=== PATIENT | female | born 1960 | race Caucasian/White ===

== ENCOUNTER 2019-11-07 09:42 | Day surgery (SDC) | payer OTHER ==
[~2019-11-07] VITALS: Ht 167.6 cm; Wt 136.5 kg
[~2019-11-07 09:42] MED LIST: OMEPRAZOLE 20 M20 M1 PO; TUMS ULTRA400 MG PO
[2019-11-07 11:05] LABS: HEMOGLOBIN 13.6 gm/dL (12.0-15.0)
[2019-11-07 11:06] VITALS: BP 131/79
--- NOTE | 2019-11-07 14:46 | H ---
[facility] [place] [address] HISTORY AND PHYSICAL Name: NIKKI MORAN Room #: 150-1 [facility] M.R.#: [id number] Admission: 11/07/19 Attend Phys: Jaiden Ulloa MD Discharge: Date of : 58 Report #: [id number] THIS REPORT FOR: cc: Jerome Boyd James A. DO Chu, Peter Y. MD ~ CC: Jerome Ulloa PREOPERATIVE DIAGNOSIS: Incisional hernia with increasing pain. Partial incarcerated with fat. HISTORY OF PRESENT ILLNESS: The patient is a 59-year-old who was seen in the office about a year ago with an incisional hernia. She had a gastric sleeve procedure. She has lost weight from 400 down to 280. With that, she noticed swelling in the right side of her abdomen. She does have discomfort in this area. Recently, she is having more pain. The patient only became aware of the bulge after her weight loss. The patient did have several laparoscopic surgeries besides the gastric sleeve surgery. The patient denies any nausea or vomiting. Does not do any heavy lifting. No difficulty with bowel movement and urination. The patient had a CAT scan performed, which showed a hernia in the abdominal wall adjacent to the umbilicus. The fascia defect measures 3.8 cm. There is fat that was protruding through the hernia measuring 5 x 7 x 6 cm. There is no bowel within the hernia. She was seen and the hernia was only partially reducible. It seemed to be a hernia on the right side in the umbilicus. There appears to be an umbilical component also. The patient called to have the surgery schedule because she is now experiencing more pain. PAST MEDICAL HISTORY: The patient has a history of seizure disorder. The patient has a breast cancer gene in her family. She had a double mastectomy and then also oophorectomy in 2000 and 2008. Mastectomy was 2008, gallbladder surgery 2008, ankle surgery 1973 and 1983. The patient had a bariatric surgery, gastric sleeve 03/2018. The patient currently denies heart disease, diabetes, high blood pressure, lung disease. No cholesterol issue. No liver disease, no kidney disease, no bleeding disorder. No history of blood clot. FAMILY HISTORY: Mother had breast cancer. Father is healthy. Diabetes in the sister, kidney disease in the sister, multiple sclerosis in the sister. SOCIAL HISTORY: She does not smoke, rarely drinks. The patient has a desk job. REVIEW OF SYSTEMS: Unremarkable. No chest pain, shortness of breath, or palpitation. MEDICATIONS: Topamax 25 mg 3 times a day. ALLERGIES: She is allergic to BACTRIM AND SULFA MEDICATION. [facility] [address] [place] [address] HISTORY AND PHYSICAL Name: NIKKI MORAN Room #: 150-1 [facility] M.R.#: [id number] Admission: 11/07/19 Attend Phys: Jaiden Ulloa MD Discharge: Date of : 58 Report #: [id number] PHYSICAL EXAMINATION: GENERAL: She is still fairly obese female. She is not in acute distress. HEENT: Pupils react to light. Extraocular muscles are intact. NECK: Soft and supple, no masses. LUNGS: Clear to auscultation. HEART: Regular rate and rhythm. No murmur or gallop. Normal S1, S2. NECK: Soft and supple. No JVD. ABDOMEN: The patient has a laparoscopic site from her gastric sleeve. The patient has a hernia adjacent to the umbilicus to the right side and then also an umbilical component. The hernia is soft and partially reducible, not totally. No abdominal tenderness, rigidity, rebound. No ascites. EXTREMITIES: No cyanosis, clubbing or edema. 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 I think it has broken down. The surgery for her gastric sleeve seems to be higher. The patient does have a complex fascia defect in this area. The total size is probably 5 cm. There is fat that is stuck in the hernia. The patient is recommended to have the hernia repaired. Laparoscopic approach was recommended and discussed. Use of mesh was discussed. Postop pain was also discussed. The patient is now having increasing abdominal pain from this and is wishing to have the surgery done before she has more trouble. Risk of bleeding, infection, postoperative pain, anesthetic risks were discussed. Use of mesh was discussed. Mesh infection was discussed. Hernia recurrence was discussed. The patient wished to proceed. <ELECTRONICALLY SIGNED> By: Jaiden Ulloa MD 11/07/19 1446 [id number] Jaiden Ulloa MD /nt
[2019-11-07 16:04] VITALS: BP 113/71
--- NOTE | 2019-11-07 16:09 | NUR ---
PT CARE ASSUMED FROM SURGERY POST HERNIA REPAIR AT 1530. A&Ox4. PT RESTING AND NOT COMPLAINING OF PAIN. PT HAS HAD SMALL SIPS OF WATER WITH NO N/V. NAUSEA PATCH BEHIND RIGHT EAR. IV IS PATENT WITH NO REDNESS OR EDEMA. FLUIDS INFUSING. HEART HEALTHY DIET. LAPSITES WITH MINIMAL EDEMA AND NO BRUISING. POST OPERATIVE FALL PROTOCOL IN PLACE WITH CALL LIGHT IN REACH. VITALS ARE STABLE. WILL CONTINUE TO MONITOR.
[2019-11-07 21:25] VITALS: BP 110/58
[2019-11-08 00:35] VITALS: BP 108/61
[2019-11-08 05:10] VITALS: BP 92/57
--- NOTE | 2019-11-08 06:18 | NUR ---
.RECIEVED CARE OF THIS PATIENT AT 1900. PATIENT ALERT AND ORIENTED X4. C/O PAIN, MED GIVEN WHEN TIME. GOOD RELIEF. PATIENT UP TO BATHROOM WITH ASSIST OF ONE AND WALKER. IV PATENT IN RHAND WITH FLUIDS INFUSING. 8 BANDAIDS ON ABD. STATES IS PASSING FLATUS. SLEPT OFF AND ON DURING NIGHT.
[2019-11-08 07:08] VITALS: BP 113/64
[2019-11-08 10:47] VITALS: BP 104/57
[2019-11-08 14:27] VITALS: BP 101/64
[2019-11-08] MEDS ORDERED: HYDROCODONE-ACE15 ML PO (15:30)
[2019-11-08 17:19] VITALS: BP 101/64
--- NOTE | 2019-11-08 17:20 | NUR ---
PT ASSESSED AT START OF SHIFT. DOING WELL. 9 LAP SITES D&I. PAIN MED W/ RELIEF. AMBULATED HALLS W/ STANDBY USING WALKER. DR. CARMEN HER TO DISCHARGE PT HOME.
--- NOTE | 2019-11-15 12:19 | EKG ---
[facility] [place] [address] ELECTROCARDIOGRAM REPORT Name: NIKKI MORAN Room #: [facility] M.R.#: [id number] Admission: 11/07/19 Attend Phys: Jaiden Ulloa MD Discharge: 11/08/19 Date of : 58 Report #: [id number] THIS REPORT FOR: cc: Jerome Boyd James A. DO Lundgren, Craig H. MD [facility] ~ THIS REPORT FOR: //name// [facility] Test Date: 2019-11-07 Test Time: 10:18:33 Pat Name: NIKKI MORAN Department: Room: Gender: F Medical Fee Clerk: candie : 1960 Requested By: Jaiden Ulloa Order Number: [id number] MD: Jim Nelson Measurements Intervals [place] Rate: 63 P: 34 TN: 208 QRS: -21 QRSD: 124 T: 32 QT: 452 QTc: 463 Interpretive Statements Sinus rhythm Borderline prolonged TN interval No previous ECG available for comparison Electronically Signed On 11-08-2019 9:53:18 CDT by Jim Nelson [email or web address] <ELECTRONICALLY SIGNED> By: Jim Nelson MD, [facility] 11/08/19 0953 [id number] Jim Nelson MD, [facility] /EPI
--- NOTE | 2019-11-27 15:34 | O ---
[facility] [place] [address] [address] [place] [address] OPERATIVE REPORT Name: NIKKI MORAN Room #: [facility] M.R.#: [id number] Admission: 11/07/19 Attend Phys: Jaiden Ulloa MD Discharge: 11/08/19 Date of : 58 Report #: [id number] THIS REPORT FOR: cc: Jerome Boyd James A. DO Chu, Peter Y. MD ~ CC: Jerome Ulloa PREOPERATIVE DIAGNOSES: Abdominal pain with chronic incarcerated incisional hernia by omental fat. POSTOPERATIVE DIAGNOSES: Abdominal pain with chronic incarcerated incisional hernia by omental fat. PROCEDURES PERFORMED: Laparoscopic repair of incisional hernia with 6-inch [place] Ventralight ST with Echo. ANESTHESIA: General. SURGEON: Jaiden Ulloa MD COMPLICATIONS: None. ESTIMATED BLOOD LOSS: 5 mL. PROCEDURE NOTE: With the patient under general anesthesia, IV antibiotic was administered, Damon catheter was placed. Abdomen was prepped and draped in sterile fashion. Ioban was used. Right upper quadrant incision was made. The incision carried through the skin and subcutaneous tissue. The anterior rectus fascia was identified. This was incised transversely. 0 Vicryl suture was placed on the edges of the fascia for retraction. Muscle was spread. The posterior fascia was identified. This was grasped with hemostat. This was opened under visualization. 0 Vicryl suture placed on the posterior fascia. The patient had open abdomen in this space. Balloon trocar was placed through the space. Balloon was inflated. Two 5 mm trocars were placed under visualization in the right lateral abdomen. This was placed laterally away from the inferior epigastric artery. The hernias identified. There is an omentum stuck inside the hernia. Using Harmonic scalpel, the fat was completely reduced. There was a large amount of fat inside the hernia sac. The hernia sac is about 2.5 cm and on the right side of the umbilicus. The omentum was adhesed to the hernia sac. This was taken down. The omental fat was completely reduced. Lateral to it or towards the midline, the fascia was attenuated. A second fascia defect was identified measuring about a centimeter at the umbilical area. The total defect is about 6 cm transversely. A 6-inch Ventralight ST mesh was used. This had the Echo balloon technology. Mesh was moistened. The balloon trocar was removed and the mesh was placed directly into [address] [address] OPERATIVE REPORT Name: DEANANNABELNIKKI CHUCHO Room #: [facility] M.R.#: [id number] Admission: 11/07/19 Attend Phys: Jaiden Ulloa MD Discharge: 11/08/19 Date of : 58 Report #: [id number] the abdomen. The balloon portion of the trocar was brought out through a small stab incision in the mid part of the fascia defect. The balloon was inflated. The mesh was then tucked up to the abdominal wall. The mesh was then held in place with SorbaFix. The SorbaFix were placed about 1.[address] around. Also placed more medially along the fascia edges too. The mesh seated well. CV-2 [place] suture was placed. Two transfascial sutures were placed on the right side edge of the mesh at the 7-8 o'clock position and then also at 10 o'clock position. A transfascial suture placed at 12 o'clock, 3 o'clock and 6 o'clock position. The sutures were tied without difficulty. Part of the transfascial suture went through the wall and then the suture was then brought out through the mesh through the same hole in the skin. A suture was tied down. All of the transfascial suture placed in identical manner. No bleeding was identified. The CO2 was evacuated, trocars were removed. The posterior fascia at the cutdown site was closed with [id number] 0 PDS x 2. The anterior fascia was also closed with 0 PDS x 2. Skin was irrigated. Skin was closed with 5-0 PDS. Dermabond was applied. Band-Aid was applied. The patient tolerated the procedure well and was taken to recovery room. <ELECTRONICALLY SIGNED> By: Jaiden Ulloa MD 11/27/19 1534 1437 1505 Jaiden Ulloa MD /nt
== END 2019-11-08 19:11 | disposition home or self-care (01) ==
LOC: OR 09:42 → TBA 11:06 → OR 12:36 → 4S 15:53 → OR 11-08 19:11
PROVIDERS: Surgery
DX: K43.0 Incisional hernia with obstruction, without gangrene (principal); R10.9 Unspecified abdominal pain; Z98.890 Other specified postprocedural states; Z98.84 Bariatric surgery status; Z90.49 Acquired absence of other specified parts of digestive tract; Z79.899 Other long term (current) drug therapy; Z88.8 Allergy status to other drugs, medicaments and biological substances; Z88.2 Allergy status to sulfonamides
CPT/HCPCS: 10195; 50010; 50101; 50249; 50386; 50455; 50555; 50687; 50978; 52265; 53065; 53307; 53335; 54022; 54118; 56525; 56526; 56530; 57092; 62110; 62900; 70005